=== PATIENT | female | born 1950 | race Caucasian/White ===

== ENCOUNTER 2021-12-19 09:05 | Inpatient (IN) | payer MEDICARE, OTHER ==
[~2021-12-19] VITALS: Ht 152.4 cm; Wt 59.0 kg
[~2021-12-19 09:05] MED LIST: ANORO ELLIPTA1 EACH INH; CARDIZEM CD180 MG PO; CATAPRES 0.1MG0.1 MG PO; IBUPROFEN600 MG PO; LOPRESSOR 25 MG25 MG PO; LOPRESSOR50 MG PO; METFORMIN HCL500 MG PO; MICROZIDE12.5 MG PO; VENTOLIN HFA 66.7 GM INH; ZESTRIL40 MG PO
[2021-12-19 09:39] LABS: HEMOGLOBIN 14.9 gm/dl (12.3-15.3); RED BLOOD COUNT 4.77 M/UL (4.00-5.10); WHITE BLOOD COUNT 14.6 K/UL (4.5-11.0)
[2021-12-19 10:11] LABS: BUN/CREATININE RATIO 15 (0-10)
[2021-12-19] MEDS ORDERED: LISINOPRIL40 MG PO (13:31)
[2021-12-19] MEDS ORDERED: DILTIAZEM 24HR300 M1 PO (13:31)
[2021-12-20 00:40] LABS: CANDIDA ALBICANS Not Detected (Negative); CANDIDA KRUSEI Not Detected (Negative); CANDIDA TROPICALIS Not Detected (Negative); HAEMOPHILUS INFLUENZAE Not Detected (Negative); KLEBSIELLA OXYTOCA Not Detected (Negative); KLEBSIELLA PNEUMONIAE Not Detected (Negative); KPC-CARBAPENEM-RESISTANCE GENE Not Detected (Negative); PROTEUS Not Detected (Negative); PSEUDOMONAS AERUGINOSA Not Detected (Negative); SERRATIA MARCESANS Not Detected (Negative); STAPHYLOCOCCUS Not Detected (Negative); STAPHYLOCOCCUS AUREUS Not Detected (Negative); STREP AGALACTIAE (GROUP B) Not Detected (Negative); STREP PYOGENES (GROUP A) Not Detected (Negative); STREPTOCOCCUS Not Detected (Negative); vanA/B (VANCOMYCIN RESIST GENE Not Detected (Negative)
[2021-12-20 01:02] LABS: ESCHERICHIA COLI DETECTED (Negative)
[2021-12-20 02:25] LABS: HEMOGLOBIN 13.4 gm/dl (12.3-15.3); WHITE BLOOD COUNT 14.8 K/UL (4.5-11.0)
[2021-12-20 02:29] LABS: RED BLOOD COUNT 4.22 M/UL (4.00-5.10)
[2021-12-20 02:48] LABS: BUN/CREATININE RATIO 17 (0-10)
[2021-12-21 06:34] LABS: HEMOGLOBIN 12.5 gm/dl (12.3-15.3); RED BLOOD COUNT 3.91 M/UL (4.00-5.10)
[2021-12-21 06:46] LABS: WHITE BLOOD COUNT 7.9 K/UL (4.5-11.0)
[2021-12-21 06:47] LABS: BUN/CREATININE RATIO 13 (0-10)
[2021-12-22 04:46] LABS: HEMOGLOBIN 12.1 gm/dl (12.3-15.3); RED BLOOD COUNT 3.87 M/UL (4.00-5.10)
[2021-12-22 04:56] LABS: WHITE BLOOD COUNT 5.4 K/UL (4.5-11.0)
[2021-12-22 05:29] LABS: BUN/CREATININE RATIO 5 (0-10)
[2021-12-22] MEDS ORDERED: LOSARTAN POTAS100 MG PO (09:54)
[2021-12-22] MEDS ORDERED: LEVOFLOXACIN750 MG PO (09:54)
[2021-12-22] MEDS ORDERED: ASPIRIN EC81 MG PO (09:54)
[2021-12-22] MEDS ORDERED: FLONASE 0.05% N16 GM (09:54)
[2021-12-22] MEDS ORDERED: COREG25 MG PO (09:54)
== END 2021-12-22 14:38 | disposition home or self-care (01) | DRG 193 ==
LOC: ER1 09:05 → M/S 12:55 → CDU 12:55 → M/S 12:55
PROVIDERS: Emergency Medicine; Physician Assistant Medical; ADMIT Internal Medicine
PROC: B24BZZZ Ultrasonography of Heart with Aorta (ICD-10-PCS; principal; 2021-12-20)
DX: J18.9 Pneumonia, unspecified organism (principal); G93.41 Metabolic encephalopathy; N10 Acute pyelonephritis; F11.20 Opioid dependence, uncomplicated; Z20.822 Contact with and (suspected) exposure to COVID-19; B96.20 Unspecified Escherichia coli [E. coli] as the cause of diseases classified elsewhere; B96.89 Other specified bacterial agents as the cause of diseases classified elsewhere; R79.89 Other specified abnormal findings of blood chemistry; E11.9 Type 2 diabetes mellitus without complications; F10.10 Alcohol abuse, uncomplicated; F17.210 Nicotine dependence, cigarettes, uncomplicated; I10 Essential (primary) hypertension; J44.9 Chronic obstructive pulmonary disease, unspecified; I08.1 Rheumatic disorders of both mitral and tricuspid valves; Z79.01 Long term (current) use of anticoagulants; Z79.82 Long term (current) use of aspirin; Z79.4 Long term (current) use of insulin; Z90.49 Acquired absence of other specified parts of digestive tract; Z82.49 Family history of ischemic heart disease and other diseases of the circulatory system
CPT/HCPCS: ECHO; 0240U; 36415; 36600; 70450; 71045; 80048; 80053; 81001; 82550; 82553; 82803; 82962; 83605; 83735; 83880; 84132; 84484; 85025; 85027; 85610; 85730; 87040; 87077; 87086; 87150; 87186; 93005; 93306; 93880; 94640; 94664; 94760; 96374; 96375; 97116-GP-CQ; 97161; 97166; 97530-GP-CQ; 99285; G0378; J0456; J0696; J1335; J2405; J3475; J7030